=== PATIENT | female | born 1970 | race Caucasian/White ===

== ENCOUNTER → 2016-09-13 | Outpatient (CLI) | payer OTHER ==
[~2016-09-13] MED LIST: LEVOXYL175 MC1 PO; OMEPRAZOLE20 M1 PO; PREMARIN0.625 MG PO; STOOL SOFTENER250 MG PO; ZESTORETIC 20-1 EAC2; ZYRTEC10 M2 PO
--- NOTE | ~2016-09-13 | CR93 ---
[facility] A Service of [facility] & [facility] RADIOLOGY TEXT RESULTS PATIENT: DELROY JAIN LOCATION: [facility] : 72 UNIT #: [id number] AGE: [address]: Celia Mckay MD SEX: F ORDER DR: [id number] [facility] [address] [place], [place] [address] [id number] O MR#: [id number] Acc #: [id number] NAME: DELROY JAIN : 1970 SEX: F STUDY DATE/TIME: 09/13/2016 11:32 UNIT: [facility] ROOM: STUDY DESCRIPTION: CR Elbow Min 3 Views Lt Attending Physician: Celia Mckay M.D. Referring Physician: Celia Mckay M.D. Ordering Physician: Celia Mckay M.D. Primary Care Physician: Celia Mckay M.D. MEDICAL IMAGING REPORT This report is preliminary unless electronic signature is present EXAM Left elbow, 09/13/2016 HISTORY 46-year-old female with left elbow pain for 3 weeks. No specific injury. COMPARISON None. FINDINGS 3 views of the left elbow demonstrate no acute fracture or dislocation. No joint effusion. Soft tissues are unremarkable. IMPRESSION Unremarkable left elbow. Dictated by... Naif España M.D. THIS IS AN ELECTRONICALLY VERIFIED REPORT Naif España M.D. at 09/14/2016 4:59 PM AREN/golden TD: 09/13/2016 15:24 JOB #: [id number] MEDICAL IMAGING REPORT Page 1 of 1 COPY
--- NOTE | ~2016-09-13 | CR181 ---
[facility] A Service of [facility] & [facility] RADIOLOGY TEXT RESULTS PATIENT: DELROY JAIN LOCATION: [facility] : 71 UNIT #: [id number] AGE: [address]: Celia Mckay MD SEX: F ORDER DR: [id number] [facility] [address] [place], [place] [address] [id number] O MR#: [id number] Acc #: [id number] NAME: DELROY JAIN : 1970 SEX: F STUDY DATE/TIME: 09/13/2016 11:31 UNIT: [facility] ROOM: STUDY DESCRIPTION: CR Lumbar Spine 2 or 3 Views Attending Physician: Celia Mckay M.D. Referring Physician: Celia Mckay M.D. Ordering Physician: Celia Mckay M.D. Primary Care Physician: Celia Mckay M.D. MEDICAL IMAGING REPORT This report is preliminary unless electronic signature is present EXAM Lumbar spine 09/13/2016 HISTORY 46-year-old female with low back pain for over 30 years. COMPARISON STUDIES Comparison none. FINDINGS 3 views of the lumbar spine demonstrate no acute fracture or subluxation. Vertebral body heights and alignment are normally maintained. Disc spaces are adequately maintained. Minimal discogenic endplate degenerative changes. Mild multilevel facet degeneration. Sacrum and SI joints appear intact. IMPRESSION 1. No acute lumbar spine injury. 2. Mild multilevel degenerative changes, detailed above. Dictated by... Naif España M.D. THIS IS AN ELECTRONICALLY VERIFIED REPORT Naif España M.D. at 09/14/2016 5:00 PM Jose TD: 09/13/2016 15:23 JOB #: [id number] MEDICAL IMAGING REPORT Page 1 of 1 COPY
== END | disposition home or self-care (01) ==
LOC: CRAD 10:40
DX: M54.5 Low back pain (principal); M25.522 Pain in left elbow; M47.816 Spondylosis without myelopathy or radiculopathy, lumbar region
CPT/HCPCS: 72100; 73080

== ENCOUNTER → 2016-11-12 | Outpatient (CLI) | payer OTHER ==
--- NOTE | ~2016-11-12 | CT2 ---
[facility] A Service of [facility] RADIOLOGY TEXT RESULTS PATIENT: DELROY JAIN LOCATION: [facility] : 72 UNIT #: [id number] AGE: [address]: rT Torres MD SEX: F ORDER DR: [id number] [facility] [address]. [place], [place] [address] [id number] O MR#: [id number] Acc #: [id number] NAME: DELROY JAIN : 1970 SEX: F STUDY DATE/TIME: 11/12/2016 9:40 UNIT: [facility] ROOM: STUDY DESCRIPTION: CT Abd and Pelv W Cont Attending Physician: Tr Torres M.D. Referring Physician: Tr Torres M.D. Ordering Physician: Tr Torres M.D. Primary Care Physician: Celia Mckay M.D. MEDICAL IMAGING REPORT This report is preliminary unless electronic signature is present EXAM CT abdomen and pelvis with contrast. DATE 11/12/2016 HISTORY 46-year-old female generalized abdominal pain intermittently with heartburn for the past 5-6 months. History of thyroid cancer diagnosed 5-6 years ago. COMPARISON None PROCEDURE 5 mm axial images from the lung bases through the lesser trochanters after intravenous and enteric contrast administration. Sagittal and coronal reformatted images were obtained. This CT exam was performed with one or more of the following radiation dose reduction techniques: automatic exposure control, adjustment of mA and/or kV according to patient size, and iterative reconstruction. FINDINGS ABDOMEN FINDINGS: Patchy alveolar disease changes are present within the left lower lobe. There is a more faint ground-glass opacity within the right middle lobe and lingula. Bilateral breast augmentation changes are present. The liver is diffusely and markedly steatotic. The gallbladder, spleen, pancreas, adrenals, and right kidney are within normal limits. 2 mm nonobstructing stone is seen within the left lower renal pole. The bowel [facility] A Service of [facility] RADIOLOGY TEXT RESULTS PATIENT: DELROY JAIN LOCATION: [facility] : 72 UNIT #: [id number] AGE: [address]: Tr Torres MD SEX: F ORDER DR: appears nonthickened, nondilated, and noninflamed. The appendix is normal. No pathologically enlarged lymph nodes are seen and there is no ascites. There is a tiny umbilical hernia containing only fat. PELVIS FINDINGS: Urinary bladder and rectum are normal. Signs of presumed supracervical hysterectomy. No acute osseous abnormalities. IMPRESSION 1. Patchy left lower lobe airspace disease with more ill-defined ground-glass opacities within the imaged segments of the lingula and right middle lobe. Correlate clinically for pneumonia. 2. No acute findings within the abdominal or pelvic cavities proper. 3. Marked diffuse hepatic steatosis. 4. 2 mm nonobstructing left renal stone. 5. Small umbilical hernia containing only fat. 6. Hysterectomy. 7. Normal appendix. Dictated by... Meg Stephens M.D. THIS IS AN ELECTRONICALLY VERIFIED REPORT Meg Stephens M.D. at 11/15/2016 1:22 PM TIA/darlin TD: 11/12/2016 16:57 JOB #: [id number] MEDICAL IMAGING REPORT Page 1 of 1 COPY
[2016-11-12 09:16] LABS: POC - CREATININE 0.88 mg/dL (0.44-1.03); POC - GFR >60.0 mL/min (>60)
== END | disposition home or self-care (01) ==
LOC: CCAT 10-18 14:40
PROVIDERS: Internal Medicine
DX: R10.84 Generalized abdominal pain (principal); N20.0 Calculus of kidney; K42.9 Umbilical hernia without obstruction or gangrene; J98.4 Other disorders of lung; Z90.710 Acquired absence of both cervix and uterus
CPT/HCPCS: 74177; 82565; Q9967

== ENCOUNTER → 2016-12-24 | Day surgery (SDC) | payer OTHER ==
--- NOTE | ~2016-12-24 | OR ---
Unit #: [id number] #: [id number] Patient: DELROY JAIN 184836 [address] [address] [id number] O MR#: [id number] NAME: DELROY JAIN ROOM: Date of Procedure: 12/24/2016 Admission Date: 12/24/2016 Surgeon: Tr Torres M.D. : 1970 Attending Physician: Tr Torres M.D. Primary Care Physician: Celia Mckay M.D. OPERATIVE REPORT PROCEDURES PERFORMED Esophagogastroduodenoscopy with biopsy, colonoscopy with biopsies, colonoscopy with snare polypectomy. INDICATIONS FOR PROCEDURE The patient with significant abdominal pain, generalized alternating bowel movements with diarrhea and constipation, GERD symptoms, undergoing evaluation with upper endoscopy and colonoscopy. MEDICATIONS Monitored anesthesia. POSTOPERATIVE FINDINGS 1. Hiatal hernia. 2. Diffuse gastritis, biopsies taken. 3. Normal duodenum and distal duodenum. 4. Biopsies taken in the duodenum looking for celiac disease. 5. Colonoscopy completed to cecum and terminal ileum. No evidence of any active colitis was seen. 6. Random biopsies taken looking for microscopic colitis. 7. Rectal polyp, 8 to 10 mm, removed using snare polypectomy and sent for histopathology. 8. Internal hemorrhoids. PLAN Follow up on the pathology report. PPI therapy to continue. DESCRIPTION OF PROCEDURE The patient was explained of the procedure, risks, and benefits along with the risks and benefits of anesthesia. She was brought to the endoscopy room. Propofol anesthesia was given. Bite block was placed. The scope was passed down the mouth into the esophagus, stomach, duodenum, and distal duodenum. Findings as described. Biopsies taken. Gently, the scope was pulled out. She tolerated it well. At this time, she was turned around and repositioned for colonoscopy. Rectal exam was done, which was normal. Colonoscope was lubricated, passed up the rectum, advanced under direct vision all the way to the cecum. Cecum was identified by ileocecal valve and appendiceal orifice. I then started to pull the scope out carefully looking. Random biopsies were taken. Rectal polyp was snared. I retroflexed in the rectum, small hemorrhoids seen. The scope was gently pulled out. She tolerated it well. Unit #: [id number] #: [id number] Patient: DELROY JAIN Dictated by... Yrn Mendoza/susie TD: 12/24/2016 17:40 JOB #: [id number] CC: Niraj Mckay M.D. OPERATIVE REPORT Page 1 of 1 X Tr Torres MD X PROCEDURE OPERATIVE NOTE
== END | disposition home or self-care (01) ==
LOC: COPS 06:57
DX: D12.8 Benign neoplasm of rectum (principal); K29.80 Duodenitis without bleeding; K29.50 Unspecified chronic gastritis without bleeding; K59.00 Constipation, unspecified; R19.7 Diarrhea, unspecified; K64.8 Other hemorrhoids; I10 Essential (primary) hypertension; K21.9 Gastro-esophageal reflux disease without esophagitis; Z87.01 Personal history of pneumonia (recurrent); Z88.2 Allergy status to sulfonamides; Z79.899 Other long term (current) drug therapy; Z90.710 Acquired absence of both cervix and uterus
CPT/HCPCS: 80053; 83516; 85025; 86255; 88305; 88312; J2250

== ENCOUNTER 2017-01-02 13:42 | Emergency (ER) | payer OTHER ==
[~2017-01-02] VITALS: Ht 167.6 cm; Wt 68.0 kg
== END 2017-01-02 15:20 | disposition home or self-care (01) ==
LOC: CED 13:42
DX: H81.10 Benign paroxysmal vertigo, unspecified ear (principal); I10 Essential (primary) hypertension; Z90.710 Acquired absence of both cervix and uterus; Z85.850 Personal history of malignant neoplasm of thyroid; Z88.2 Allergy status to sulfonamides; Z79.899 Other long term (current) drug therapy
CPT/HCPCS: 82947; 99284

== ENCOUNTER → 2017-01-06 | Outpatient (CLI) | payer OTHER | END | disposition home or self-care (01) | LOC: CRC 08:23 | DX: J40 Bronchitis, not specified as acute or chronic (principal) | CPT/HCPCS: 94060; 94726; 94729 ==

== ENCOUNTER → 2017-02-07 | Outpatient (CLI) | payer OTHER ==
--- NOTE | ~2017-02-07 | CT57 ---
[facility] A Service of [facility] RADIOLOGY TEXT RESULTS PATIENT: DELROY JAIN LOCATION: [facility] : 72 UNIT #: [id number] AGE: [address]: Yesy James MD SEX: F ORDER DR: [id number] [place] [id number] [facility]. [place], [place] [address] [id number] O MR#: [id number] Acc #: [id number] NAME: DELROY JAIN : 1970 SEX: F STUDY DATE/TIME: 02/07/2017 8:48 UNIT: [facility] ROOM: STUDY DESCRIPTION: CT Chest Wo Cont Attending Physician: Yesy James M.D. Referring Physician: Yesy James M.D. Ordering Physician: Yesy James M.D. Primary Care Physician: Celia Mckay M.D. MEDICAL IMAGING REPORT This report is preliminary unless electronic signature is present EXAM CT chest without contrast DATE 02/07/2017 HISTORY Pneumonia. 3-month followup. No current complaints. History of thyroid cancer 10 years ago. COMPARISON AP portable chest 06/03/2016. There is no more recent chest radiograph or CT chest at this institution for comparison. Correlation is also made to CT abdomen and pelvis lung windows from 11/12/2016. PROCEDURE 5 mm axial images through the chest without contrast. Sagittal and coronal reformatted images were obtained. This CT exam was performed with one or more of the following radiation dose reduction techniques: automatic exposure control, adjustment of mA and/or kV according to patient size, and iterative reconstruction. FINDINGS Patchy ground-glass densities are demonstrated within the left lower lobe. The airspace disease appears improved compared to the CT abdomen lung windows from 11/12/2016. The left upper lobe and right lung appear clear. No pericardial effusion, pleural effusion or pathologic adenopathy. Bilateral breast implants incidentally noted. Calcification is seen in the proximal left anterior descending coronary artery. Liver is steatotic. Remainder of the included upper abdominal organs are within normal limits. IMPRESSION [facility] A Service of [facility] RADIOLOGY TEXT RESULTS PATIENT: DELROY JAIN [id number] 72 UNIT #: [id number] AGE: [address]: Yesy James MD SEX: F ORDER DR: 1. Significant interval improvement in left lower lobe airspace disease since 11/12/2016. Mild patchy ground-glass densities remain, may represent some residual pneumonitis. 2. Remainder of the lung zones appear clear. 3. Left anterior descending coronary artery calcification. Correlate with cardiac history. 4. Hepatic steatosis. Dictated by... Meg Stephens M.D. THIS IS AN ELECTRONICALLY VERIFIED REPORT Meg Stephens M.D. at 02/08/2017 9:50 AM [facility]/to TD: 02/07/2017 20:03 JOB #: [id number] MEDICAL IMAGING REPORT Page 1 of 1 COPY
== END | disposition home or self-care (01) ==
LOC: CCAT 07:40
DX: J18.9 Pneumonia, unspecified organism (principal); I25.10 Atherosclerotic heart disease of native coronary artery without angina pectoris
CPT/HCPCS: 71250